=== PATIENT | male | born 1980 | race Caucasian/White ===

== ENCOUNTER 2017-05-23 14:36 | Emergency (ER) | payer OTHER ==
[~2017-05-23] VITALS: Ht 170.2 cm; Wt 83.5 kg
[~2017-05-23 14:36] MED LIST: ALBUTEROL SULF8.5 GM IH; EVZIO0.4 MG/0.4 IM; FLOVENT 22120 INHALA IH; MOTRIN600 MG PO; NO MEDS; NOHOMEMEDS; PREDNISONE20 MG PO; ROXICODONE5 MG PO
[2017-05-23] MEDS ORDERED: TOBREX5 ML RIGHT EYE (15:25)
[2017-05-23 16:12] VITALS: BP 140/84
== END 2017-05-23 16:00 | disposition home or self-care (01) ==
LOC: EME 14:36
DX: S05.01XA Injury of conjunctiva and corneal abrasion without foreign body, right eye, initial encounter (principal); W22.8XXA Striking against or struck by other objects, initial encounter
CPT/HCPCS: 99281; 99284